=== PATIENT | female | born 1995 | race Two or more races ===

== ENCOUNTER 2019-07-27 17:28 | Emergency (ER) | payer MEDICAID ==
[~2019-07-27] VITALS: Ht 238.8 cm; Wt 65.8 kg
[2019-07-27 18:26] LABS: Urine Bacteria NONE SEEN /hpf (None Seen); Urine Blood 2+ /uL (Negative); Urine Specific Gravity 1.015 (1.001-1.035); Urine WBC 13 /hpf (0 - 5)
[2019-07-27] MEDS ORDERED: ACETAMINOPHEN/CODEINE#3 (300/30mg) TAB PO ONE (20:30)
[2019-07-27 21:14] VITALS: BP 118/87
== END 2019-07-27 21:21 | disposition home or self-care (01) ==
LOC: ER 17:28
DX: N94.6 Dysmenorrhea, unspecified (principal)
CPT/HCPCS: 36415; 81001; 84702